=== PATIENT | female | born 2005 | race Caucasian/White ===

== ENCOUNTER 2023-11-12 14:02 | Outpatient (AMB) | payer BC, SELFPAY ==
--- NOTE | 2023-11-12 14:16 | A.OFFVIS_ITS ---
Vital Signs 11/12/23 14:18 Height 5 ft 4 in Weight 381 lb 13.45 oz BMI 65.5 BP 112/64 Blood Pressure Location Rt radial Position Sitting Pulse 90 Pulse Source Pulse Oximeter Intake Visit Reasons: Obesity-lvm Intake Note: New patient present today for Obesity. Gutter Mouth Cutter Required: No Accompanied by: Mother Allergies Penicillins Adverse Reaction (Unknown, Verified 11/12/23 14:19) Rash HPI Comments Details: This is a 18-year-old female referred to endocrinology for evaluation for obesity. Patient states weight gain of chronically over time . Denies any symptoms of Nicolas syndrome. She has sleep apnea use a CPAP mask. She also has pre diabetes a . Has tried diets of fasting diets . never tried meal replacements. . She saw weight loss specialist coding analyst and was placed on Zepbound but her insurance denied. No ther wt loss medications tried . Symptoms of hypothyroidism - has fatigue, no change in bowel movement s or other sx Saw peds endocrine and placed on phenermine but couldn't take because of anxiety. Mom had bariatric surgery. Mother has Type 2 DM as well as grandfather . [facility] Medical History (Updated 11/12/23 @ 14:24 by Jamel Smart MD) Obesity (BMI 35.0-39.9 without comorbidity) Surgical History (Updated 11/12/23 @ 14:20 by ANTONIO Brand) History of surgery Family History Mother Diabetes Hypothyroidism Rheumatoid arthritis Father No known health problems Social History Alcohol intake: never Patient Tobacco Use Status: Never used Tobacco Physical Exam Vital Signs: BMI result Body Mass Index 65.5 Const Other: Morbidly obese female. No cushingoid features. Thyroid gland is normal size weighs about 15 g. Abdominal exam reveals no organomegaly. Absence of acanthosis nigricans on skin exam Assessment & Plan Assessment & Plan (1) Obesity (BMI 35.0-39.9 without comorbidity): Code(s): E66.9 - Obesity, unspecified Category: Medical Plan: This is a 18-year-old female referred to endocrinology for management of morbid obesity. Rule out secondary causes like hypothyroidism Will check TSH and free T4. Would also consider genetic testing for mono genic obesity. Will also refer to coding analyst. After above, could consider use of an alternative G LP 1 like Wegovy or Saxenda depending upon when insurance will cover Orders: Orders Free T4 (Free Thyroxine) Today E66.9 - Obesity, unspecified Thyroid Stimulating Hormone Today E66.9 - Obesity, unspecified Referrals Nutrition/Dietitian Referral E66.9 - Obesity, unspecified Medications: New tirzepatide (weight loss) (Zepbound) for 4 weeks 2.5 mg (0.5 mL) subcut QWEEK 2 mL 4RF Coding Level of Care Code New Pt Level 4 (48446) Diagnoses Obesity (BMI 35.0-39.9 without comorbidity) E66.9
[2023-11-12 14:18] VITALS: BP 112/64; PULSE 90; BMI 65.5
== END 2023-11-12 15:26 | disposition home or self-care (01) ==
PROVIDERS: PCP Internal Medicine; Visit Provider Internal Medicine Endocrinology, Diabetes & Metabolism
DX: E66.9 Obesity, unspecified (principal)
CPT/HCPCS: 99204

== ENCOUNTER → 2023-11-12 14:02 | Outpatient (BNVA) | payer BC, SELFPAY | PROVIDERS: PCP Internal Medicine; Visit Provider Internal Medicine Endocrinology, Diabetes & Metabolism ==

== ENCOUNTER 2023-11-13 09:37 | Outpatient (REF) | payer BC, SELFPAY ==
[2023-11-13 11:23] LABS: Free T4 (Free Thyroxine) 0.79 ng/dL (0.71-1.85); Thyroid Stimulating Hormone 1.87 uIU/mL (0.32-4.0)
== END 2023-11-13 09:38 | disposition home or self-care (01) ==
LOC: HO.10HDL 09:37
PROVIDERS: Visit Provider Internal Medicine Endocrinology, Diabetes & Metabolism
DX: E66.9 Obesity, unspecified (principal)
CPT/HCPCS: 36415; 84439; 84443

== ENCOUNTER 2023-12-19 13:21 | Outpatient (AMB) | payer BC, SELFPAY ==
--- NOTE | 2023-12-19 13:48 | A.OFFVIS_ITS ---
VS Expanded 12/19/23 14:03 12/19/23 14:06 Height 5 ft 4 in 5 ft 4 in Weight 385 lb 5.888 oz 385 lb BMI 66.1 66.1 Intake Visit Reasons: Obesity Allergies Penicillins Adverse Reaction (Unknown, Verified 11/12/23 14:19) Rash Nutrition Presentation Details: Pt presents for MNT for obesity. Pt was referred by Dr Smart, alterations manager Pt reports having 3 meals per day and snacks in between Typically Breakfast: bagel with cream cheese, donut, coffee w syrup or refeshner L: fast food meal D: potato/corn , chicken, water snacks: cookies/pastries physical activity: gym 2 times/wk, 30 min (recently stopped) supplements: sea jeryr daily and multivitamin etoh/smoking; denies pt on duloxetine BS Monitoring Most Recent Diabetes Results: No Data to Display [facility] Equation Height: 5 ft 4 in Weight: 385 lb Resting Metabolic Rate: 2501.18 Calculated Activity Level: Sedentary Calories Needed to Maintain Weight: 3001.42 Diagnosis Nutrition problem #1: excessive energy intake As related to (etiology) #1: diagnosis As evidenced by (sign/symptom) #1: knowledge deficit of diet Monitoring/Goals Nutrition problem monitoring: level of knowledge/skill, total PRO intake, total CHO intake and oral fluids [facility] Medical History (Updated 11/12/23 @ 14:24 by Jamel Smart MD) Obesity (BMI 35.0-39.9 without comorbidity) Surgical History History of surgery Family History Mother Diabetes Hypothyroidism Rheumatoid arthritis Father No known health problems Social History Alcohol intake: never Patient Tobacco Use Status: Never used Tobacco Assessment & Plan Assessment & Plan (1) Obesity (BMI 35.0-39.9 without comorbidity): Code(s): E66.9 - Obesity, unspecified Category: Medical Plan: Wt: 175 Kg ( 12/25 ) Est kcal needs as per MSJ: 3000 (40% carb, 30% protein/fat) Est fluid needs as per 25-30 ml/d: 5250 Est prot per day as per 1 g/kg bw: 175 Recommend fiber intake : 8-10 g per day and gradually increase to 25-28 g per day for women and 35-38 g for men or as tolerated Recommend sodium intake per day : less than 2300 mg Educated patient on: ( R = reviewed V = verbalizes understanding N/R = needs review N/A = not applicable * Food sources of carbohydrate, adequate serving sizes and its role in various health conditions: R * Differences between complex carbohydrates a simple carbohydrates, role of fiber in diet: R V N/R * Lean protein sources of foods: R V NR * Differences between types of fats and role in diet (mono on saturated fat fatty acids, saturated fatty acids, trans fats): R V N/R * Food sources of sodium in salt and healthy modifications for heart health in kidney health: R V R/V * Vitamins and minerals: R V N/R * Healthy plate method concept: R * Physical activity: Benefits a precaution: R V N/R * Hypoglycemia protocol (rule of 15): R V N/R * Dietary prevention of Hyperglycemia: R V R/V Patient Instructions: Work on reduction of sugars (pastries/syrups, sugar added to the foods) Continue to have 3 meals/day following healthy plate method , reduce on total carb per meal to 100g for now Limit snack to 2 a day consisting of 20 g of carbs or less see meal ideas as reference Coding Level of Care Code Nutr Indiv Intake (76837) Diagnoses Obesity (BMI 35.0-39.9 without comorbidity) E66.9 Time Spent (min) 30
[2023-12-19 14:03] VITALS: BMI 66.1
[2023-12-19 14:06] VITALS: BMI 66.1
== END 2023-12-19 14:29 | disposition home or self-care (01) ==
PROVIDERS: PCP Internal Medicine; Visit Provider Dietitian, Registered
DX: E66.9 Obesity, unspecified (principal)

== ENCOUNTER → 2023-12-19 13:21 | Outpatient (BNVA) | payer BC, SELFPAY | PROVIDERS: PCP Internal Medicine; Visit Provider Dietitian, Registered | DX: E66.9 Obesity, unspecified (principal); Z68.44 Body mass index [BMI] 60.0-69.9, adult; Z71.3 Dietary counseling and surveillance | CPT/HCPCS: 97802 ==

== ENCOUNTER 2024-02-11 13:54 | Outpatient (AMB) | payer BC, SELFPAY ==
[2024-02-11 13:56] VITALS: BP 110/52; PULSE 62; BMI 66.7
--- NOTE | 2024-02-11 13:56 | MHC.OFFVIS ---
Vital Signs 02/11/24 13:56 Height 5 ft 4 in Weight 388 lb 10.799 oz BMI 66.7 BP 110/52 L Blood Pressure Location Lt brachial Position Sitting Pulse 62 Pulse Source Pulse Oximeter Intake Visit Reasons: f/u obesity Intake Note: Patient present today for Obesity follow up. Social Service Director Required: No Accompanied by: Mother Allergies Penicillins Adverse Reaction (Unknown, Verified 02/11/24 14:00) Rash HPI Comments Details: This is a 18-year-old female referred to endocrinology for evaluation for obesity. Patient states weight gain of chronically over time . Denies any symptoms of Nicolas syndrome. She has sleep apnea use a CPAP mask. She also has pre diabetes a . Has tried diets of fasting diets . never tried meal replacements. . She saw weight loss specialist lumber cutter and was placed on Zepbound but her insurance denied. No ther wt loss medications tried . Symptoms of hypothyroidism - has fatigue, no change in bowel movement s or other sx Saw peds endocrine and placed on phenermine but couldn't take because of anxiety. Mom had bariatric surgery. Mother has Type 2 DM as well as grandfather . [facility] Medical History (Updated 11/12/23 @ 14:24 by Jamel Smart MD) Obesity (BMI 35.0-39.9 without comorbidity) Surgical History History of surgery Family History Mother Diabetes Hypothyroidism Rheumatoid arthritis Father No known health problems Social History Alcohol intake: never Patient Tobacco Use Status: Never used Tobacco Physical Exam Vital Signs: Last Vital Signs Pulse 62 02/11/24 13:56 BP 110/52 L 02/11/24 13:56 BMI result Body Mass Index 66.7 Assessment & Plan Assessment & Plan (1) Obesity (BMI 35.0-39.9 without comorbidity): Code(s): E66.9 - Obesity, unspecified Category: Medical Plan: This is a 18-year-old female referred to endocrinology for management of morbid obesity. Clinically and biochemically euthyroid Would also consider genetic testing for mono genic obesity. In terms of genetic testing and treatment we are somewhat limited locally by insurance. I took the liberty of referring her to the obesity clinic at [facility] to see Dr. Soheila Lozoya who might be able to facilitate genetic testing and possibly arrange for coverage of either prescription drug medications for weight loss and/enroll the patient in a clinical trial Orders: Referrals Endocrinology Referral E66.9 - Obesity, unspecified Coding Level of Care Code Est Pt Level 3 (49286) Diagnoses Obesity (BMI 35.0-39.9 without comorbidity) E66.9
--- OUTSIDE RECORDS SUMMARY | 2024-02-12 21:51 | XMS_ITS ---
Author Name [facility] Organization Unknown Problems Problem Status Onset Date Problem Type Date of Resoluti on Source Procedure and treatment not carried out for other reasons active EncounterDiagnosisAct [facility]
== END 2024-02-11 14:28 | disposition home or self-care (01) ==
PROVIDERS: PCP Internal Medicine; Visit Provider Internal Medicine Endocrinology, Diabetes & Metabolism
DX: E66.9 Obesity, unspecified (principal)
CPT/HCPCS: 99213